=== PATIENT | female | born 1945 | race Caucasian/White ===

== ENCOUNTER 2017-11-11 22:09 | Emergency (ER) | payer MEDICARE ==
--- NOTE | 2017-11-11 23:03 | RAD ---
LEFT SHOULDER THREE VIEWS: History: Fall with injury and pain, left shoulder. FINDINGS: There is evidence of subtle fracture at the greater tuberosity along the lateral superior margin of t he humeral head. There are mild degenerative changes at the glenohumeral joint and at the AC joint. There is extraosseous calcification of the humeral head which may reside within the rotator cuff. IMPRESSION: Evidence of subtle fracture at the greater tuberosity of the proximal humerus. POS: [facility]
--- NOTE | 2017-11-11 23:04 | RAD ---
LEFT KNEE FOUR VIEWS: History: Fall with injury, knee pain. FINDINGS: There are degenerative changes at the knee. The medial and lateral joint spaces are preserved. Mild s purring is seen from the medial condyles and the posterior patella. No fracture or acute abnormality. No evidence of joint effusion. IMPRESSION: There are mild degenerative changes noted at the left knee. POS: [facility]
[2017-11-11 23:17] LABS: #Basophils 0.1 thou/uL (0.0-0.2); #Eosinphils 0.2 thou/uL (0.0-0.7); #Lymphocytes 1.9 thou/uL (1.20-3.40); #Monocytes 0.4 thou/uL (0.11-0.59); #Neutrophils 6.9 thou/uL (1.40-6.50); %Basophils 0.6 % (0.0-1.0); %Eosinophils 2.2 % (0.0-10.0); %Lymphocytes 19.7 % (21.0-51.0); %Monocytes 4.6 % (0.0-10.0); Hemoglobin 13.2 g/dL (12.0-16.0); Mean Corpuscular HGB CONC 32.4 g/dL (32.0-36.0); Mean Corpuscular Volume 92.4 fl (81.0-99.0); Mean Platelet Volume 9.9 fL (7.4-10.4); Platelet Count 175 thou/uL (130-400); RBC Distribution Width 12.1 % (11.5-14.5); Red Blood Cell (RBC) Count 4.39 mill/uL (4.20-5.40); White Blood Cell (WBC) Count 9.4 thou/uL (4.8-10.8)
[2017-11-11 23:23] LABS: INR-International Normal Ratio 2.3; Prothrombin Time 26.6 SEC (12.0-14.7)
[2017-11-11 23:24] LABS: PTT 49.5 SEC (22.9-36.1)
[2017-11-11 23:24] LABS: Bilirubin Negative (Negative); Blood, Urine Negative (Negative); Clarity CLEAR (Clear); Glucose, Urine (Dipstick) Negative (Negative); Leukocyte Negative (Negative); Nitrite Negative (Negative); Protein, Urine (Dipstick) Negative (Neg-Trace); Specific Gravity, Urine 1.011 (1.002-1.036); pH, Urine 6.5 (5.0-9.0)
--- NOTE | 2017-11-11 23:30 | RAD ---
PORTABLE CHEST: History: Fall. Comparison: 11-03-02 FINDINGS: Lung thompson are clear. Heart size is upper normal. Vascular markings are within normal range. The oss eous structures appear intact. IMPRESSION: No acute abnormality identified. POS: [facility]
--- NOTE | 2017-11-11 23:32 | CT ---
CT HEAD WITHOUT CONTRAST: Technique: Multiple axial tomograms were obtained through the head without contras enhancement. History: Fall with injury to head. FINDINGS: Ventricles have normal size and position. There is no evidence of intracranial mass or hemorrhage. Si nuses and mastoids are well aerated. There is an air fluid level in the right maxillary sinus noted. IMPRESSION: 1. No acute intracranial process. 2. Fluid level in the right maxillary sinus. POS: [facility]
[2017-11-11 23:36] LABS: ALT (SGPT) 18 U/L (8-55); AST (SGOT) 25 U/L (5-34); Albumin 4.3 g/dL (3.4-4.8); Alkaline Phosphatase 65 U/L (40-150); Anion Gap 16 mmol/L (10-20); BUN (Urea Nitrogen) 27 mg/dL (9.8-20.1); Bilirubin, Total 0.5 mg/dL (0.2-1.2); Calc. Creatinine Clearance 0 mL/min (70-130); Calcium 10.3 mg/dL (7.8-10.44); Carbon Dioxide 23 mmol/L (23-31); Chloride 105 mmol/L (98-107); Estimated GFR-MDRD 63; Globulin 3.1 g/dL (2.4-3.5); Glucose 104 mg/dL (83-110); Magnesium 1.4 mg/dL (1.6-2.6); Potassium 3.8 mmol/L (3.5-5.1); Protein, Total 7.4 g/dL (6.0-8.3); Sodium 140 mmol/L (136-145)
[2017-11-11 23:41] LABS: CKMB 2.6 ng/mL (0-6.6); Troponin I 0.011 ng/mL (< 0.028)
[2017-11-12] MEDS ORDERED: HYDROcodone/Acetaminophen 5/325 mg Tablet ONE (00:01)
--- NOTE | 2017-11-12 07:58 | RAD ---
AP PELVIS: Date: 11/12/17 HISTORY: Injury after fall. FINDINGS: No fracture or dislocation is seen. A few punctate metallic density foci are seen overlying the right lower quadrant and pelvis which may actually be artifactual related to overlying artifact, but this is difficult to definitively determine on this exam. IMPRESSION: No acute osseous abnormality. POS: [facility]
--- NOTE | 2017-11-17 22:42 | EKG ---
Test Reason : Blood Pressure : / mmHG Vent. Rate : 081 BPM Atrial Rate : 468 BPM P-R Int : 000 ms QRS Dur : 144 ms QT Int : 408 ms P-R-T Axes : 000 -53 100 degrees QTc Int : 473 ms Atrial fibrillation Left axis deviation Left bundle branch block Abnormal ECG Confirmed by JOELLE FAUSTIN ([id number]), editorial manager LUCY DYE ([id number] on 11/17/2017 10:41:13 PM Referred By: ROXIE Confirmed By:JOELLE FAUSTIN
== END 2017-11-12 01:00 | disposition home or self-care (01) ==
LOC: ERS 22:09
DX: S42.292A Other displaced fracture of upper end of left humerus, initial encounter for closed fracture (principal); S70.02XA Contusion of left hip, initial encounter; I48.91 Unspecified atrial fibrillation; E78.5 Hyperlipidemia, unspecified; E11.9 Type 2 diabetes mellitus without complications; E03.9 Hypothyroidism, unspecified; I10 Essential (primary) hypertension; Z87.891 Personal history of nicotine dependence; Z79.01 Long term (current) use of anticoagulants; Z79.899 Other long term (current) drug therapy; W01.0XXA Fall on same level from slipping, tripping and stumbling without subsequent striking against object, initial encounter; Y93.01 Activity, walking, marching and hiking; Y92.009 Unspecified place in unspecified non-institutional (private) residence as the place of occurrence of the external cause
CPT/HCPCS: 36415; 70450; 71045; 72170; 80053; 81003; 82553; 83735; 84484; 85025; 85610; 85730; 93005